=== PATIENT | female | born 1940 | race Caucasian/White ===

== ENCOUNTER 2017-01-05 12:09 | Emergency (ER) | payer BC, MEDICARE ==
[2017-01-05] MEDS ORDERED: Aspirin 81 MG Tab.Chew PO ONE (12:19)
--- NOTE | 2017-01-05 12:48 | EDM.PDOC ---
<Kimmie Fernando - Last Filed: 01/05/17 16:32> ED HISTORY OF PRESENT ILLNESS - General Chief Complaint: Respiratory Problem Stated Complaint: SHORTNESS OF BREATH Time Seen by Provider: 01/05/17 12:25 - History of Present Illness INITIAL COMMENTS - FREE TEXT/NARRATIVE: This is Dr. Fernando dictating an addendum note as a supervising physician on this case. Agree with history and physical as above and I have been involved in this case from its onset. In light of the patient's hypoxia off oxygen it has been discussed with her she to the hospital for further care and evaluation and she' s actually adamant about not staying in the hospital. Due to her hypoxia I did discuss with the son at bedside he states understanding and is respecting her wishes and will take her home. Oxygen was replaced onto the patient after she desaturated and I spoke with her when she O2 sat of 99% and the remainder of vitals are stable. She's actually adamant about not staying in the hospital and requests that I write a prescription for her to have oxygen at home which I am unable to do. She is understanding that we are going to treat her pneumonia and that she runs the risks of low oxygen level and all the sequela of that if she goes home. She understands that she can have permanent disability or and accepts that. The son also bedside accepts that and states he will bring her back if she changes her mind. We'll give her referrals for followup and place her on antibiotics the patient currently is in the ED off of oxygen and will be getting dressed and the discharge. The patient and son are aware of my great concerns of her decision but they both accepts and understands these concerns and are still choosing for discharge home. - Related Data Allergies/ADRs: Allergies Allergy/AdvReac Type Severity Reaction Status Date / Time No Known Allergies Allergy Verified 01/05/17 12:19 Home Meds: Home Meds Clopidogrel [Plavix] 1 tab PO DAILY 01/05/17 [History] Furosemide [Lasix] 1 tab PO BID 01/05/17 [History] Gabapentin [Neurontin] 1 cap PO BID 01/05/17 [History] Isosorbide Mononitrate [Isosorbide Mononitrate ER] 1 tab PO DAILY 01/05/17 [ History] Metoprolol Succinate [Toprol Xl] 1 tab PO DAILY 01/05/17 [History] Mometasone/Formoterol [Dulera 200-5 MCG] 2 puff INH BID 01/05/17 [History] Potassium Chloride 1 tab PO DAILY 01/05/17 [History] atorvaSTATin [Lipitor] 1 tab PO DAILY 01/05/17 [History] ED ROS GENERAL - Review of Systems Review Of Systems: ROS reveals no pertinent complaints other than HPI. ED EXAM, GENERAL - Physical Exam Exam: See Below (See dictation) Course - Vital Signs Last Recorded V/S: Last Vital Signs Temp 97.2 F 01/05/17 16:43 Pulse 102 H 01/05/17 16:43 Resp 20 01/05/17 16:43 BP 142/90 H 01/05/17 16:43 Pulse Ox 91 L 01/05/17 16:43 - Orders/Labs/Meds Orders: Active Orders 24 hr Category Date Time Status EKG Documentation Completion [RC] STAT Care 01/05/17 12:19 Active Labs: Laboratory Tests 01/05/17 01/05/17 01/05/17 Range/Units 12:25 12:25 12:25 WBC 6.28 (4.0-11.0) K/uL RBC 4.15 L (4.30-5.90) M/uL Hgb 13.3 (12.0-16.0) g/dL Hct 41.7 (36.0-46.0) % MCV 100.5 H (80.0-98.0) fL MCH 32.0 (27.0-32.0) pg MCHC 31.9 (31.0-37.0) g/dL RDW Std Deviation 51.9 (28.0-62.0) fl RDW Coeff of Rodriguez 14 (11.0-15.0) % Plt Count 162 (150-400) K/uL MPV 10.80 (7.40-12.00) fL Neut % (Auto) 71.7 (48.0-80.0) % Lymph % (Auto) 21.0 (16.0-40.0) % Murray % (Auto) 6.4 (0.0-15.0) % Eos % (Auto) 0.3 (0.0-7.0) % Baso % (Auto) 0.6 (0.0-1.5) % Neut # 4.5 (1.4-5.7) K/uL Lymph # 1.3 (0.6-2.4) K/uL Murray # 0.4 (0.0-0.8) K/uL Eos # 0.0 (0.0-0.7) K/uL Baso # 0.0 (0.0-0.1) K/uL Nucleated RBC % 0.0 /100WBC Nucleated RBCs # 0 K/uL INR (0.86-1.11) D-Dimer, Quantitative (0.0-0.52) mg/LFEU Sodium 143 (136-146) mmol/L Potassium 4.2 (3.5-5.1) mmol/L Chloride 109 (98-110) mmol/L Carbon Dioxide 24 (21-31) mmol/L BUN 18 (6.0-23.0) mg/dL Creatinine 1.1 (0.6-1.5) mg/dL Est Cr Clr Drug Dosing 38.75 mL/min Estimated GFR (MDRD) 48.6 ml/min Glucose 104 (60-110) mg/dL Calcium 9.4 (8.8-10.8) mg/dL Total Bilirubin 1.7 H (0.1-1.5) mg/dL AST 20 (5-40) IU/L ALT 23 (8-54) IU/L Alkaline Phosphatase 118 (40-150) Troponin I < 0.10 (0.0-0.29) NG/ML Total Protein 7.1 (6.0-8.0) g/dL Albumin 4.0 (3.4-4.8) g/dL Globulin 3.1 (2.0-3.5) g/dL Albumin/Globulin Ratio 1.3 (1.3-2.8) Amylase (10-90) U/L Lipase (7-80) U/L 01/05/17 01/05/17 01/05/17 Range/Units 12:25 12:25 12:25 WBC (4.0-11.0) K/uL RBC (4.30-5.90) M/uL Hgb (12.0-16.0) g/dL Hct (36.0-46.0) % MCV (80.0-98.0) fL MCH (27.0-32.0) pg MCHC (31.0-37.0) g/dL RDW Std Deviation (28.0-62.0) fl RDW Coeff of Rodriguez (11.0-15.0) % Plt Count (150-400) K/uL MPV (7.40-12.00) fL Neut % (Auto) (48.0-80.0) % Lymph % (Auto) (16.0-40.0) % Murray % (Auto) (0.0-15.0) % Eos % (Auto) (0.0-7.0) % Baso % (Auto) (0.0-1.5) % Neut # (1.4-5.7) K/uL Lymph # (0.6-2.4) K/uL Murray # (0.0-0.8) K/uL Eos # (0.0-0.7) K/uL Baso # (0.0-0.1) K/uL Nucleated RBC % /100WBC Nucleated RBCs # K/uL INR 1.01 (0.86-1.11) D-Dimer, Quantitative 1.44 H (0.0-0.52) mg/LFEU Sodium (136-146) mmol/L Potassium (3.5-5.1) mmol/L Chloride (98-110) mmol/L Carbon Dioxide (21-31) mmol/L BUN (6.0-23.0) mg/dL Creatinine (0.6-1.5) mg/dL Est Cr Clr Drug Dosing mL/min Estimated GFR (MDRD) ml/min Glucose (60-110) mg/dL Calcium (8.8-10.8) mg/dL Total Bilirubin (0.1-1.5) mg/dL AST (5-40) IU/L ALT (8-54) IU/L Alkaline Phosphatase (40-150) Troponin I (0.0-0.29) NG/ML Total Protein (6.0-8.0) g/dL Albumin (3.4-4.8) g/dL Globulin (2.0-3.5) g/dL Albumin/Globulin Ratio (1.3-2.8) Amylase 53 (10-90) U/L Lipase 22 (7-80) U/L Meds: Medications Discontinued Medications Generic Name Dose Route Start Last Admin Trade Name Griselda PRN Reason Stop Dose Admin Aspirin 324 mg 01/05/17 12:19 01/05/17 12:33 Aspirin PO 01/05/17 12:20 324 mg ONETIME ONE Administration Sodium Chloride 1,000 mls @ 999 mls/hr 01/05/17 14:12 01/05/17 15:53 Normal Saline IV 01/05/17 15:12 999 mls/hr STAT ONE Administration Iopamidol 40 ml 01/05/17 15:47 01/05/17 15:56 Isovue-370 (76%) IV 01/05/17 15:48 40 ml ONETIME STA Administration Departure - Departure Time of Disposition: 16:35 Disposition: Home, Self-Care 01 Condition: fair Clinical Impression: Hypoxia Pneumonia Qualifiers: Pneumonia type: due to unspecified organism Laterality: left Lung location: lower lobe of lung Qualified Code(s): J18.1 - Lobar pneumonia, unspecified organism Instructions: Hypoxemia, Community-Acquired Pneumonia, Adult, [id number] Referrals: PCP,None [Primary Care Provider] - Forms: ED Department Discharge Additional Instructions: The following information is given to patients seen in the emergency department who are being discharged to home. This information is to outline your options for follow-up care. We provide all patients seen in our emergency department with a follow-up referral. The need for follow-up, as well as the timing and circumstances, are variable depending upon the specifics of your emergency department visit. If you don't have a primary care physician on staff, we will provide you with a referral. We always advise you to contact your personal physician following an emergency department visit to inform them of the circumstance of the visit and for follow-up with them and/or the need for any referrals to a consulting specialist. The emergency department will also refer you to a specialist when appropriate. This referral assures that you have the opportunity for followup care with a specialist. All of these measure are taken in an effort to provide you with optimal care, which includes your followup. Under all circumstances we always encourage you to contact your private physician who remains a resource for coordinating your care. When calling for followup care, please make the office aware that this follow-up is from your recent emergency room visit. If for any reason you are refused follow-up, please contact the [facility] emergency department at and ask to speak to the emergency department charge nurse. [facility] Primary care- Internal Medicine and Family [address] [address] Please take antibiotics as directed and return to ER as needed as discussed. They try to reduce and stop tobacco use. Please call and followup with your family provider or one of our clinic physicians the next one to two days - My Orders Last 24 Hours: My Active Orders 01/05/17 12:19 EKG Documentation Completion [RC] STAT - Assessment/Plan Last 24 Hours: My Active Orders 01/05/17 12:19 EKG Documentation Completion [RC] STAT <Jennifer Erwin - Last Filed: 01/05/17 17:21> ED HISTORY OF PRESENT ILLNESS - General Source of Information: Reports: Patient History Limitations: Reports: No limitations - History of Present Illness INITIAL COMMENTS - FREE TEXT/NARRATIVE: HISTORY AND PHYSICAL: History of present illness: [Patient comes to the ER complaining of a squeezing sensation in her left chest and shortness of breath. Symptoms began on Tuesday and has continued through today. She continues to smoke one half to one pack cigarettes per day. Admits that similar sensations of chest pain and SOA occur from time to time usually lasting one day or less. Current symptoms have continued for the past 4 days. Has felt chills on and off the past couple of days. Denies fever. Has had a dry cough, and is not coughing up sputum. She fell approximately one month ago, hitting her left knee. bruising has moved into her Left ankle. Otherwise, denies swelling to her feet and lower legs. Decreased appetite, no pain. No change in bowel or bladder. History of cardiac stents x7 by Dr. Navas. Last followup with admissions clinician was 5- 6 years ago. ] Review of systems: As per history of present illness and below otherwise all systems reviewed and negative. Past medical history: As per history of present illness and as reviewed below otherwise noncontributory. Surgical history: As per history of present illness and as reviewed below otherwise noncontributory. Social history: No reported history of drug or alcohol abuse. Family history: As per history of present illness and as reviewed below otherwise noncontributory. Physical exam: General: Well developed, well nourished , elderly female in no acute distress. Smells heavily of cigarette smoke. HEENT: Atraumatic, normocephalic. Wears glasses. mucous membranes moist. throat clear, neck supple, nontender, trachea midline. Lungs: mild wheezing to left lower posterior lung. Otherwise, clear to auscultation. Heart: S1S2, regular rhythm, rate 100. negative for clicks, rubs, or JVD. Abdomen: Soft, nondistended, nontender. Negative for masses or hepatosplenomegaly. Pelvis: Stable nontender. Genitourinary: Deferred. Rectal: Deferred. Extremities: Bruising present to left medial ankle and lower leg. Light pale brown ecchymosis to Left infrapatellar region. negative for cords or calf pain. Neurovascular unremarkable. Neuro: Awake, alert, oriented. Cranial nerves II through XII unremarkable. Cerebellum unremarkable. Motor and sensory unremarkable throughout. Exam nonfocal. Diagnostics: [CBC, CMP, troponin, D-dimer, amylase, lipase, chest x-ray, EKG, CTA chest] Therapeutics: [Aspirin 324 mg by mouth, 1 liter NS] Impression: [chest pain, unknown etiology] Plan: Left basilar infiltrate appreciated on chest x-ray. O2 saturation 96% on 2 L oxygen, remains at 84% on room air. D-dimer is elevated at 1.44. GFR is 48, patient is given decreased dose of contrast. CT machine apparently broke while patient was being scanned so VQ scan is performed instead. Patient hydrated post scan with 1 L normal saline. Discussed w/ patient and son that she has pneumonia, and recommend hospitalization. Patient is adamant that she does not want to be hospitalized and and wants to go home. Discussed with patient and son that she is always welcome to return to the ER for reevaluation or if she should change her mind about admission. Again strongly areas with patient and her son that she be admitted for IV antibiotics. She again declines. Written Rx given for Levaquin 500 milligrams #7 one daily no refills. Her sugars establish care with a local primary care provider and followup there in 48-72 hours. She is to push fluids. All of her questions are answered and concerns are addressed. ] Definitive disposition and diagnosis as appropriate pending reevaluation and review of above. Past Medical History Cardiovascular History: Reports: High cholesterol, Hypertension, IN, Stents Respiratory History: Reports: Bronchitis, recurrent, COPD [employer] History: Reports: - Infectious Disease History Infectious Disease History: Reports: Chicken pox, Measles, Mumps, Shingles Social & Family History - Family History Family Medical History: Noncontributory - Tobacco Use Smoking Status *Q: Current Every Day Smoker Years of Tobacco use: 48 Packs/Tins Daily: 1 - Caffeine Use Caffeine Use: Reports: Coffee - Recreational Drug Use Recreational Drug Use: No ED ROS GENERAL - Review of Systems Review Of Systems: ROS reveals no pertinent complaints other than HPI. ED EXAM, GENERAL - Physical Exam Exam: See Below Course - Orders/Labs/Meds Labs: Laboratory Tests 01/05/17 01/05/17 01/05/17 Range/Units 12:25 12:25 12:25 WBC 6.28 (4.0-11.0) K/uL RBC 4.15 L (4.30-5.90) M/uL Hgb 13.3 (12.0-16.0) g/dL Hct 41.7 (36.0-46.0) % MCV 100.5 H (80.0-98.0) fL MCH 32.0 (27.0-32.0) pg MCHC 31.9 (31.0-37.0) g/dL RDW Std Deviation 51.9 (28.0-62.0) fl RDW Coeff of Rodriguez 14 (11.0-15.0) % Plt Count 162 (150-400) K/uL MPV 10.80 (7.40-12.00) fL Neut % (Auto) 71.7 (48.0-80.0) % Lymph % (Auto) 21.0 (16.0-40.0) % Murray % (Auto) 6.4 (0.0-15.0) % Eos % (Auto) 0.3 (0.0-7.0) % Baso % (Auto) 0.6 (0.0-1.5) % Neut # 4.5 (1.4-5.7) K/uL Lymph # 1.3 (0.6-2.4) K/uL Murray # 0.4 (0.0-0.8) K/uL Eos # 0.0 (0.0-0.7) K/uL Baso # 0.0 (0.0-0.1) K/uL Nucleated RBC % 0.0 /100WBC Nucleated RBCs # 0 K/uL INR (0.86-1.11) D-Dimer, Quantitative (0.0-0.52) mg/LFEU Sodium 143 (136-146) mmol/L Potassium 4.2 (3.5-5.1) mmol/L Chloride 109 (98-110) mmol/L Carbon Dioxide 24 (21-31) mmol/L BUN 18 (6.0-23.0) mg/dL Creatinine 1.1 (0.6-1.5) mg/dL Est Cr Clr Drug Dosing 38.75 mL/min Estimated GFR (MDRD) 48.6 ml/min Glucose 104 (60-110) mg/dL Calcium 9.4 (8.8-10.8) mg/dL Total Bilirubin 1.7 H (0.1-1.5) mg/dL AST 20 (5-40) IU/L ALT 23 (8-54) IU/L Alkaline Phosphatase 118 (40-150) Troponin I < 0.10 (0.0-0.29) NG/ML Total Protein 7.1 (6.0-8.0) g/dL Albumin 4.0 (3.4-4.8) g/dL Globulin 3.1 (2.0-3.5) g/dL Albumin/Globulin Ratio 1.3 (1.3-2.8) Amylase (10-90) U/L Lipase (7-80) U/L 01/05/17 01/05/17 01/05/17 Range/Units 12:25 12:25 12:25 WBC (4.0-11.0) K/uL RBC (4.30-5.90) M/uL Hgb (12.0-16.0) g/dL Hct (36.0-46.0) % MCV (80.0-98.0) fL MCH (27.0-32.0) pg MCHC (31.0-37.0) g/dL RDW Std Deviation (28.0-62.0) fl RDW Coeff of Rodriguez (11.0-15.0) % Plt Count (150-400) K/uL MPV (7.40-12.00) fL Neut % (Auto) (48.0-80.0) % Lymph % (Auto) (16.0-40.0) % Murray % (Auto) (0.0-15.0) % Eos % (Auto) (0.0-7.0) % Baso % (Auto) (0.0-1.5) % Neut # (1.4-5.7) K/uL Lymph # (0.6-2.4) K/uL Murray # (0.0-0.8) K/uL Eos # (0.0-0.7) K/uL Baso # (0.0-0.1) K/uL Nucleated RBC % /100WBC Nucleated RBCs # K/uL INR 1.01 (0.86-1.11) D-Dimer, Quantitative 1.44 H (0.0-0.52) mg/LFEU Sodium (136-146) mmol/L Potassium (3.5-5.1) mmol/L Chloride (98-110) mmol/L Carbon Dioxide (21-31) mmol/L BUN (6.0-23.0) mg/dL Creatinine (0.6-1.5) mg/dL Est Cr Clr Drug Dosing mL/min Estimated GFR (MDRD) ml/min Glucose (60-110) mg/dL Calcium (8.8-10.8) mg/dL Total Bilirubin (0.1-1.5) mg/dL AST (5-40) IU/L ALT (8-54) IU/L Alkaline Phosphatase (40-150) Troponin I (0.0-0.29) NG/ML Total Protein (6.0-8.0) g/dL Albumin (3.4-4.8) g/dL Globulin (2.0-3.5) g/dL Albumin/Globulin Ratio (1.3-2.8) Amylase 53 (10-90) U/L Lipase 22 (7-80) U/L
--- NOTE | 2017-01-05 13:25 | CR ---
EXAMINATION: Two-view chest (PA and Lateral views). HISTORY: Chest.. FINDINGS: The trachea is midline. The heart is borderline in size. Aortic calcifications are noted. There is m ild left basilar atelectasis and/or infiltrate. No pleural effusion or pneumothorax. Mild chronic in terstitial prominence. Osseous structures appear osteopenic. IMPRESSION: Left basilar atelectasis/scarring and/or infiltrate.
[2017-01-05] MEDS ORDERED: Sodium Chloride 0.9% 1,000 ML IV ONE (14:12)
[2017-01-05] MEDS ORDERED: Iopamidol 755 MG/ML 50 ML Bottle IV STA (15:47)
--- NOTE | 2017-01-05 16:01 | NM ---
EXAMINATION: NM ventilation perfusion study HISTORY: Pain COMPARISON: Radiograph from the same day TECHNIQUE: Multiplanar acquisitions were obtained of the chest following the administration of 4 mCi of technetium 99m labeled MAA and 44.3 mCi of technetium 99m labeled DTPA. FINDINGS: There is a heterogeneous distribution noted on the ventilation images. There is no ventila tion or perfusion mismatch. No segmental perfusion defects. IMPRESSION: Low probability for a pulmonary embolism.
[2017-01-05 17:12] VITALS: BP 142/90
== END 2017-01-05 16:44 | disposition home or self-care (01) ==
LOC: MW.ED 12:09
DX: J18.1 Lobar pneumonia, unspecified organism (principal); Z79.899 Other long term (current) drug therapy
CPT/HCPCS: 36415; 71020; 78582; 80053; 82150; 83690; 84484; 85025; 85379; 85610; 96360; 99285; A9270; A9540; A9567; J7040; 99283; Q9967

== ENCOUNTER → 2017-01-20 | Outpatient (CLI) | payer BC, MEDICARE | LOC: MW.CHIM 11:55 | PROVIDERS: ATTEND Internal Medicine | DX: N39.0 Urinary tract infection, site not specified (principal) | CPT/HCPCS: 81001 ==

== ENCOUNTER → 2017-02-15 | Outpatient (CLI) | payer BC, MEDICARE ==
--- NOTE | 2017-02-18 14:14 | ECHO ---
EXAM DATE: 02/15/17 The echocardiogram report can be seen in this patient's EMR (Electronic Medical Record) in the Reports section. CHRISTA
== END | disposition home or self-care (01) ==
LOC: MW.US 13:46
PROVIDERS: ATTEND Internal Medicine
DX: I50.9 Heart failure, unspecified (principal); I25.10 Atherosclerotic heart disease of native coronary artery without angina pectoris; I42.9 Cardiomyopathy, unspecified; I51.9 Heart disease, unspecified; I35.8 Other nonrheumatic aortic valve disorders; I35.1 Nonrheumatic aortic (valve) insufficiency; I34.0 Nonrheumatic mitral (valve) insufficiency
CPT/HCPCS: 93306